=== PATIENT | male | born 1955 | race Caucasian/White ===

== ENCOUNTER 2018-08-15 10:38 | Inpatient (IN) | payer BC, OTHER ==
--- NOTE | 2018-08-15 10:55 | EDPHY ---
H & P Stated Complaint: cheest tightness Time Seen by Provider: 08/15/18 10:51 - Personal History Current Tetanus/Diphtheria Vaccine: Unsure - Medical/Surgical History Hx Asthma: No Hx Chronic Respiratory Disease: No Hx Diabetes: No Hx Cardiac Disease: Yes Hx Renal Disease: No Hx Cirrhosis: No Hx Alcoholism: No Hx HIV/AIDS: No Hx Splenectomy or Spleen Trauma: No Other PMH: mi 8 stents - Social History Smoking Status: Never smoked Constitutional: Initial Vital Signs Temperature (C) 36.6 C 08/15/18 10:45 Heart Rate 71 08/15/18 10:45 Respiratory Rate 16 08/15/18 10:45 Blood Pressure 151/94 H 08/15/18 10:45 O2 Sat (%) 92 08/15/18 10:45 O2 Delivery Mode Room Air Allergies/Adverse Reactions: No Known Allergies Allergy (Unverified 08/15/18 10:44) Home Medications: Medication Instructions Recorded Aspirin 08/15/18 Atenolol 08/15/18 Simvastatin 08/15/18 Medical Decision Making ED Course/Re-evaluation: CHIEF COMPLAINT: Chest pain HISTORY OF PRESENT ILLNESS: The patient is a 63 y/o male with a history of an NY requiring 6 cardiac stents complaining of resolved "light" chest tightness, onset 2 days ago. The patient was hiking up a hill when he developed a general chest tightness. He stopped hiking and the pain alleviated, however when he started hiking again the pain returned. He skied yesterday and didn't have the chest tightness, the level of exertion was less than the hike. He has tried recreating the exertion level and chest tightness, but has been unable to do so. This pain feels different than the chest pain when he had an NY. Due to his cardiac history he decided to present to the emergency department. The patient does take his medications mostly as prescribed including Aspirin and Simvastatin. He does not take Simvastatin every day due to muscle pain. he denies seeing a vehicle safety inspector recently. No fever, headache, body aches, lightheadedness, heart palpitations, shortness of breath, cough, abdominal pain, urinary or bowel complaints, numbness, paresthesias. REVIEW OF SYSTEMS: A 10 point review of systems was performed and is negative with the exception of the elements mentioned in the history of present illness. PHYSICAL EXAM: HR, BP, O2 Sat, RR. Temp noted General Appearance: Alert, well hydrated, appropriate, and non-toxic appearing. Head: Atraumatic without scalp tenderness or obvious injury Eyes: Pupils equal, round, reactive to light and accommodation, EOMI, no trauma , no injection. Ears: Clear bilaterally, no perforation, normal landmarks Nose: Atraumatic, no rhinorrhea, clear. Throat: There is no erythema or exudates, no lesions, normal tonsils, mucus membranes moist. Neck: Supple, 2+ carotid upstroke, nontender, no lymphadenopathy. Respiratory: No retractions, no distress, no wheezes, and no accessory muscle use. Lungs are clear to auscultation bilaterally. Cardiovascular: 1/6 systolic murmur. Regular rate and rhythm, no rubs, or gallops. Bilateral carotid, radial, dorsalis pedis, and posterior tibial pulses intact. Good capillary refill all extremities. Gastrointestinal: Abdomen is soft, nontender, non-distended, no masses, no rebound, no guarding, no peritoneal signs. Musculoskeletal: Normal active ROM of all extremities, atraumatic. Neurological: Alert, appropriate, and interactive. The patient has normal DTRs and non-focal cranial nerves, motor, sensory, and cerebellar exam. Skin: No rashes, good turgor, no nodules on palpation. Past medical history: NY Past surgical history: 6 cardiac stents (1998) Family history: Father had NY in 40's Social history: Lives in [place], , employed DIAGNOSTICS/PROCEDURES/CRITICAL CARE TIME: EKG: The 12 lead EKG was interpreted by myself as sinus rhythm with a rate of 61 and borderline left axis deviation. See hard copy and/or "tracemaster" electronic copy for interpretation. DIFFERENTIAL DIAGNOSIS: The differential diagnosis for the patient's chest pain included but was not limited to myocardial ischemia, pulmonary embolus, chest wall pain, pleural inflammation, and pulmonary infectious causes. MEDICAL DECISION MAKING: The patient is a 63 y/o male with a history of an NY requiring 6 cardiac stents complaining of resolved "light" chest tightness, onset 2 days ago while hiking up a hill. He has been unable to recreate the level of exertion and chest tightness. On exam he has a 1/6 systolic murmur, but an otherwise normal physical exam. I have discussed probably plan for admission and catheterization which the patient is comfortable with. Labs and EKG ordered. 1058: I interpreted patient's EKG as sinus rhythm with a rate of 61 and borderline left axis deviation. 1108: Patient's troponin is 0.02 1111: I consulted with Dr. Montes, vehicle safety inspector, regarding this patient. The foam charger will come to the emergency department to consult on this patient. We will keep the patient NPO. 1124: I consulted with the hospitalist service, Dr. Lauren accepts admission of this patient. 1131: I consulted with Dr. Montes, this patient will be transferred to the floor and then cathed later. 1134: Reassessed patient and discussed my consultations with the vehicle safety inspector and hospitalist. He is comfortable with plan for admission. 1155: I consulted with the vehicle safety inspector NAYELY regarding this patient. The patient will be transported to the laboratory technology teacher from the emergency department. - Data Points Laboratory Results: Laboratory Results 08/15/18 10:55 08/15/18 10:55 08/15/18 08/15/18 10:55 10:55 WBC 5.14 10^3/uL 10^3/uL (3.80-9.50) RBC 5.15 10^6/uL 10^6/uL (4.40-6.38) Hgb 15.3 g/dL g/dL (13.7-17.5) Hct 43.9 % % (40.0-51.0) MCV 85.2 fL fL (81.5-99.8) MCH 29.7 pg pg (27.9-34.1) MCHC 34.9 g/dL g/dL (32.4-36.7) RDW 13.2 % % (11.5-15.2) Plt Count 179 10^3/uL 10^3/uL (150-400) MPV 11.2 fL fL (8.7-11.7) Neut % (Auto) 54.6 % % (39.3-74.2) Lymph % (Auto) 29.4 % % (15.0-45.0) [place] % (Auto) 10.9 % % (4.5-13.0) Eos % (Auto) 4.3 % % (0.6-7.6) Baso % (Auto) 0.6 % % (0.3-1.7) Nucleat RBC Rel Count 0.0 % % (0.0-0.2) Absolute Neuts (auto) 2.81 10^3/uL 10^3/uL (1.70-6.50) Absolute Lymphs (auto) 1.51 10^3/uL 10^3/uL (1.00-3.00) Absolute Monos (auto) 0.56 10^3/uL 10^3/uL (0.30-0.80) Absolute Eos (auto) 0.22 10^3/uL 10^3/uL (0.03-0.40) Absolute Basos (auto) 0.03 10^3/uL 10^3/uL (0.02-0.10) Absolute Nucleated RBC 0.00 10^3/uL 10^3/uL (0-0.01) Immature Gran % 0.2 % % (0.0-1.1) Immature Gran # 0.01 10^3/uL 10^3/uL (0.00-0.10) Sodium 139 mEq/L mEq/L (135-145) Potassium 4.5 mEq/L mEq/L (3.5-5.2) Chloride 108 mEq/L mEq/L (97-110) Carbon Dioxide 24 mEq/l mEq/l (22-31) Anion Gap 7 mEq/L mEq/L (6-14) BUN 27 mg/dL H mg/dL (7-23) Creatinine 1.3 mg/dL mg/dL (0.7-1.3) Estimated GFR 56 Glucose 95 mg/dL mg/dL (70-100) Calcium 9.2 mg/dL mg/dL (8.5-10.4) Departure - Departure Disposition: To OP Cath/Surgery Clinical Impression: Chest pain Qualifiers: Chest pain type: chest pain due to myocardial ischemia Ischemic chest pain type : stable angina pectoris Qualified Code(s): I20.8 - Other forms of angina pectoris CAD (coronary artery disease) Qualifiers: Coronary Disease-Associated Artery/Lesion type: alutiiq artery [place] vs. transplanted heart: alutiiq heart Associated angina: with stable angina Qualified Code(s): I25.118 - Atherosclerotic heart disease of alutiiq coronary artery with other forms of angina pectoris Condition: Fair Referrals: Patient,NotPresent [Unknown] - As per Instructions Report Scribed for: Braeden Cotto Report Scribed by: Nica Brambila Date of Report: 08/15/18 Time of Report: 10:57
[2018-08-15 11:08] LABS: PLATELET COUNT 179 10^3/uL (150-400)
[2018-08-15] MEDS ORDERED: TEMAZEPAM 15 MG CAP PO PRN (12:07)
[2018-08-15] MEDS ORDERED: FAMOTIDINE 20 MG TAB PO ONE (12:07)
[2018-08-15] MEDS ORDERED: ASPIRIN EC 325 MG TAB PO ONE (12:07)
[2018-08-15] MEDS ORDERED: NITROGLYCERIN 0.4 MG BTL SL PRN ×2 (12:07→14:36)
[2018-08-15] MEDS ORDERED: DIAZEPAM 5 MG TAB PO ONE (12:07)
[2018-08-15] MEDS ORDERED: diphenhydrAMINE 25 MG CAP PO ONE (12:07)
[2018-08-15 12:27] LABS: INR 0.92 (0.83-1.16)
--- NOTE | 2018-08-15 12:49 | PDGENHP ---
History and Physical History and Physical: CC: Exertional angina HISTORY: ROS: A comprehensive 10 system review revealed no other significant findings PAST MEDICAL HISTORY: Myocardial infarction Coronary artery disease with 6 stents placed Hypercholesterolemia Myalgias induced by statin medicines FAMILY MEDICAL HISTORY: His father had myocardial infarction in his 40s SOCIAL HISTORY: MEDICATIONS: The patients list has been reconciled by our clinical pharmacist in the EMR. I have reviewed the list and ordered appropriate medicines. PHYSICAL EXAMINATION: Vital Signs: Double Backer: Examination: General: alert, oriented, good mentation, relaxed Skin: warm, dry, good color, no rash HEENT: normal Neck: no mass or jvd Resps: relaxed Lungs: clear breath sounds Heart: regular, no murmur Abdomen: soft, nondistended, nontender, +BS, no mass Upper Extremities: normal Lower Extremities: no edema, warm No Bleeding or bruising Neurologic: normal speech/language, normal analyst geochemical prospecting, no focal weakness IV site: looks normal LABORATORY DATA: Unremarkable CBC and coagulation studies BUN a bit elevated at 27, with creatinine 1.3 otherwise unremarkable chemistry panel Troponin undetectable LDL cholesterol 120s RADIOLOGY STUDIES: 12 LEAD EKG: ASSESSMENT: * Exertional angina, new onset so unstable in a man with previous stents and myocardial infarction * Uncontrolled hypertension * Uncontrolled hypercholesterolemia, with inconsistent use of statin medication * Initial ER assessment without signs of myocardial injury or arrhythmia PLANS: I have reviewed the patient's case in detail with . I have reviewed the patient's past medical records as part of this assessment, including
[2018-08-15] MEDS ORDERED: fentaNYL 100 MCG/2 ML INJ ONE (13:18)
[2018-08-15] MEDS ORDERED: LIDOCAINE 1% 300 MG/30 ML SDV ONE (13:18)
[2018-08-15] MEDS ORDERED: IOPAMIDOL (ISOVUE-370) 150 ML BTL IV ONE (13:19)
[2018-08-15] MEDS ORDERED: MIDAZOLAM 2 MG/2 ML VIAL ONE (13:19)
--- NOTE | 2018-08-15 13:50 | PDHPUP ---
History & Physical Update H&P update statement: This history and physical update is based on an assessment of the patient which was completed after admission or registration (within 24 hours), but prior to the surgery/procedure. H&P update: H&P reviewed & patient examined, no change in patient's condition since H&P completed
--- NOTE | 2018-08-15 13:51 | PDPROPOC ---
Sedation Plan of Care Sedation Plan of Care: mental status noted, patient educated of risks, benefits , alternatives, patient can tolerate sedation ASA Classification: ASA 2 Planned drugs: fentanyl, midazolam Mallampati Score: Class 2 Mallampati Reference Image: Patient passed 3-3-2 rule?: Yes
[2018-08-15] MEDS ORDERED: PRASUGREL HCL 10 MG TAB ONE (13:54)
--- NOTE | 2018-08-15 14:28 | GCON ---
[f rep ] CONSULTATION CARDIOLOGY CONSULTATION DATE OF CONSULTATION: 08/15/2018 REFERRING PHYSICIAN: Braeden Cotto MD REASON FOR CONSULTATION: We were asked by Dr. Cotto to evaluate the patient for his new onset of chest pain. HISTORY OF PRESENT ILLNESS: The patient is a 63-year-old male with a previous history of CAD starting with PTCA and stenting starting in 1998. At that time, he was living in [place]. He had chest pain in the night. He went to the hospital the next day and had a failed stress test. He proceeded to left heart catheterization and had PTCA and stenting of unknown vessel. He reports he was told he had moderate disease affecting other vessels, which were not intervened upon at that time. A couple of months later, he had further episodes of pain and proceeded to more stenting. In 2008, he was having chest pain walking up a hill, and again, this was reminiscent of his initial angina. He proceeded to left heart catheterization, and had further PTCA and stenting. He reports all this was done with Dr. Vaqsuez. Over the weekend, he had skied and noted a light chest tightness. This was exertional and relieved with stopping. That afternoon, he took his dog walking and had similar symptoms. He stopped walking and symptoms would annamarie. He had no associated dyspnea, diaphoresis, or nausea. This was across his sternal region without radiation. He has not been noting fever, chills, nausea, vomiting, cough, hemoptysis, lower extremity swelling, PND, or orthopnea. OUTPATIENT MEDICATIONS: Please see medication reconciliation. He reports they are Crestor, which he only takes intermittently due to myalgias; omeprazole 20 mg p.o. daily; folic acid; ramipril 2.5 mg p.o. daily; Effient 10 mg p.o. daily ; aspirin 81 mg p.o. daily; atenolol 25 mg p.o. daily. ALLERGIES: No known drug allergies. FAMILY HISTORY: Father had an AR at age 41. He lived until his 80s. PAST MEDICAL HISTORY: As above. SOCIAL HISTORY: Patient lives in [place]. He is . He is an ex-smoker, having quit 20 years ago. He does use a marijuana products. He reports 2 alcoholic beverages per week. PHYSICAL EXAMINATION: VITAL SIGNS: BP of 156/93, heart rate 63, respirations 18, O2 saturation 93% on room air. GENERAL: He is a very pleasant male in no apparent distress. HEENT: Normocephalic, atraumatic. Eyes are without scleral icterus. HEART: Regular rate and rhythm with no rubs, gallops, or murmurs. LUNGS: Clear to auscultation. ABDOMEN: Soft with normoactive bowel sounds. : No [place] present. SKIN: Warm and dry. PSYCH: Normal mood and affect for given situation. NEURO: No focal deficits detected. LABORATORY/IMAGING: CBC with WBC 5.14, hemoglobin 15.3, hematocrit 43.9, platelet count 179. BMP with sodium 139, potassium 4.5, chloride 108, CO2 24, BUN 27, creatinine 1.3, glucose 95. A 12-lead ECG personally interpreted shows normal sinus rhythm with LAFB. I have spoken with Dr. Cotto in the ED about patient's care. IMPRESSION AND PLAN: The patient is a 63-year-old male with hypertension, dyslipidemia, and coronary artery disease. He presents with new onset unstable angina. 1. Unstable angina. He feels symptoms are currently reminiscent of previous angina. We reviewed options and patient is agreeable to left heart catheterization for further evaluation. Risks, benefits, and alternatives were reviewed with him. 2. Dyslipidemia. He reports only intermittent usage of his Crestor. He feels that he gets myalgias from this. We will check a baseline lipid panel discuss other pharmacologic options. 3. Hypertension. Blood pressure is quite elevated in the emergency setting. We will follow blood pressure and consider up-titrating medications as indicated. /[id number]/MODL MTDD
[2018-08-15] MEDS ORDERED: ONDANSETRON 4 MG/2 ML VIAL IVP PRN (14:36)
[2018-08-15] MEDS ORDERED: OXYCODONE/APAP 5/325 TAB PO PRN (14:36)
[2018-08-15] MEDS ORDERED: ATROPINE SULFATE 1 MG/10 ML SYR IVP PRN (14:36)
--- NOTE | 2018-08-15 14:46 | CPEKG ---
Test Reason : OPEN Blood Pressure : / mmHG Vent. Rate : 061 BPM Atrial Rate : 061 BPM P-R Int : 146 ms QRS Dur : 093 ms QT Int : 415 ms P-R-T Axes : 047 -27 012 degrees QTc Int : 418 ms Sinus rhythm Borderline left axis deviation Confirmed by Braeden Cotto ([id number]) on 08/15/2018 2:46:20 PM Referred By: PHYSICIAN ED Confirmed By:Braeden Cotto
--- NOTE | 2018-08-15 16:04 | CPIP ---
[f rep st] INVASIVE CARDIAC PROCEDURE DATE OF PROCEDURE: 08/15/2018 INDICATION FOR PROCEDURE: Unstable angina. PROCEDURES: 1. Nonselective right groin sheathogram. 2. Bilateral coronary angiography. 3. Left heart catheterization. 4. Left angiogram. HISTORY: Briefly, this is a 63-year-old male with history of multiple coronary stents in the past, carlyn guajardo was admitted to [facility] with complaints of unstable-like anginal symptoms. Given the patient's significant history of multiple coronary stents, as well as his classic history of ang inal pain, we decided to proceed with a left heart catheterization. DESCRIPTION OF PROCEDURE: After informed consent, the patient was brought to [facility] where the right groin was prepped and draped in sterile fashion. Using lidocaine, a short 6-[place] sheath in the right common femoral artery verified angiographically. Through this 6-[place] sheath, a JL4 catheter was advanced to the left coronary artery. Images of the left coronary artery revealed normal left main. Left circumflex artery had what appear ed to be proximal dilatation bifurcating to 2 marginal arteries. At the bifurcation of the marginal arteries, there was at least 30% to 40% disease in both proximal marginal arteries. In the marginal 1 artery, there appeared to be another area of at least 50% to 60% disease after its proximal takeoff. There was a ramus intermedius which had 30% narrowing across the bend in the vesse l, but distally appeared to be widely patent. The LAD was extensively stented from its proximal to m idportion. These stents showed extensive in-stent restenosis up to approximately 80% to 90%. Distal ly, the vessel appeared to be widely patent. After imaging was obtained, the JL4 catheter was remove d. The JR4 catheter was advanced to the right coronary artery. Images of the right coronary artery reve aled normal ostial RCA. In the proximal RCA, there was a stent which had extensive in-stent restenosis measuring up to 90%. The mid RCA appeared to be patent with mild plaque disease. The distal RCA just before the bifurcation of the RPD and RPLS had a focal 80% lesion. The distal RPD and RPLS appeared to be w idely patent. After these images were obtained, the JR4 catheter was removed. Pigtail catheter was advanced to the left ventricle. LVEDP is 15 mmHg. Left ventriculogram in the R AO projection showed an EF of 65% with no wall motion abnormalities. There was no pullback gradient between the LV and the aorta. The pigtail catheter was removed over an 0.035 wire. Right groin was closed with 6-[place] Angio-Seal. Patient tolerated the procedure well with no complications. IMPRESSION: 1. Severe double-vessel in-stent restenosis in the left anterior descending and proximal right coron anabela artery with an additional high-grade lesion in the distal right coronary artery, as well as moder ate disease in the proximal OM1 artery. 2. Normal ejection fraction. PLAN: Given the fact the patient shows significant in-stent restenosis in 2 major arteries, as well as has a history of multiple stents placed in the past, I feel that we should proceed with a CT Surge ry consult for definitive therapy for his coronary artery disease. We will take him off the table. We will hold his Effient at this time, have Dr. Recinos from CT Surgery evaluate the patient. Further orders following clinical course. /[id number]/MODL
[2018-08-15] MEDS: ACETAMINOPHEN 325 MG TAB PO PRN (18:51)
[2018-08-15] MEDS: FOLIC ACID 1 MG TAB PO SCH (20:30)
[2018-08-15] MEDS: ATENOLOL 25 MG TAB PO SCH (20:30)
[2018-08-15] MEDS: RAMIPRIL 2.5 MG CAP PO SCH (20:30)
[2018-08-15] MEDS: ROSUVASTATIN CALCIUM 10 MG TAB PO SCH (20:40)
[2018-08-15] MEDS: PANTOPRAZOLE SODIUM 40 MG TAB PO SCH (20:41)
[2018-08-15] MEDS: HYDROCODONE/APAP 5/325 TAB PO PRN (20:47)
--- NOTE | 2018-08-16 07:22 | PDCARPN ---
Cardiology Progress Note Chief Complaint: CP Assessment/Plan: Assessment: CP CAD Plan: 08/16/18 07:21 pt has severe ISR in multiple vessels Plan for CABG per CTS continue current tx, hold effient Subjective: stable Reviewed/Discussed With: multidisciplinary team Time Spent with Patient: greater than 25 minutes Time Spent with Patient: Greater than 25 minutes spent on this patients care, greater than 50% of time spent counseling, educating, and coordinating care regarding the above mentioned plan. Objective: Vital Signs (8 Hrs) Temp Pulse Resp BP Pulse Ox 08/16/18 04:00 36.5 C 56 L 16 121/67 H 94 08/15/18 23:33 36.5 C 51 L 16 121/70 H 96 Intake/Output (24 Hrs) 08/15/18 08/16/18 08/17/18 05:59 05:59 05:59 Intake Total 700 Output Total 650 Balance 50 Intake: Oral (ml) 700 Output: Urine (ml) 650 Urinal 650 Other: Weight 81.647 kg Number of Voids Urinal 2 Result Diagrams: 08/15/18 10:55 08/15/18 10:55 - Physical Exam Constitutional: healthy appearing Eyes: PERRL Ears, Nose, Mouth, Throat: moist mucous membranes Cardiovascular: regular rate and rhythm Peripheral Pulses: 1+: femoral (R), femoral (L) Respiratory: clear to auscultate bilat Gastrointestinal: normoactive bowel sounds Genitourinary: no suprapubic tenderness Skin: no rashes Musculoskeletal: no muscular tenderness Neurologic: AAOx3 Psychiatric: cooperative ICD10 Worksheet Patient Problems: Problems Problem Status Onset CAD (coronary artery disease) Acute Chest pain Acute
[2018-08-16] MEDS: ACETAMINOPHEN 325 MG TAB PO PRN (10:14)
--- NOTE | 2018-08-16 14:59 | ASMTCMCOM ---
CM Note CM Note Notes: Pts case discussed in tx rounds. Pt is a 63 y/o man admitted for CAD. Pt will most likely d/c independent when medically stable. No therapies ordered at this time. CM available for changes. Plan: Independent Date Signed: 08/16/2018 02:58 PM Electronically Signed By:ANNALISA Faith
[2018-08-16] MEDS: HYDROCODONE/APAP 5/325 TAB PO PRN (20:54)
[2018-08-16] MEDS: RAMIPRIL 2.5 MG CAP PO SCH (20:54)
[2018-08-16] MEDS: ATENOLOL 25 MG TAB PO SCH (20:55)
[2018-08-16] MEDS: FOLIC ACID 1 MG TAB PO SCH (20:55)
[2018-08-16] MEDS: PANTOPRAZOLE SODIUM 40 MG TAB PO SCH (20:58)
[2018-08-16] MEDS: ROSUVASTATIN CALCIUM 10 MG TAB PO SCH (20:58)
--- NOTE | 2018-08-16 21:21 | PDMN ---
Medical Necessity Medical necessity: Change to inpt as of 08/16/18 @ 16:30, pt meets inpt criteria per MD order and MCG M-40, Angina. 63 y/o w/hx CAD/stent, HTN, and dyslipidemia , admitted w/USA, underwent LHC and was found to have severe in-stent restenosis in mult vessels (LAD and prox RCA with add'l high-grade lesion in distal RCA, as well as mod disease in prox OM 1). Upgraded to inpt for CT surg consult and likely CABG this admission.
[2018-08-17 05:07] LABS: PLATELET COUNT 179 10^3/uL (150-400)
--- NOTE | 2018-08-17 07:39 | PDCARPN ---
Cardiology Progress Note Chief Complaint: CP Assessment/Plan: Assessment: CP CAD Plan: 08/16/18 07:21 pt has severe ISR in multiple vessels Plan for CABG per CTS continue current tx, hold effient 08/17/18 07:38 stable no CP Plan for CABG on 08/18 plan per CTS Subjective: stable Reviewed/Discussed With: multidisciplinary team Time Spent with Patient: greater than 25 minutes Time Spent with Patient: Greater than 25 minutes spent on this patients care, greater than 50% of time spent counseling, educating, and coordinating care regarding the above mentioned plan. Objective: Vital Signs (8 Hrs) Temp Pulse Resp BP Pulse Ox 08/17/18 04:00 36.6 C 57 L 12 139/83 H 93 Intake/Output (24 Hrs) 08/16/18 08/17/18 08/18/18 05:59 05:59 05:59 Intake Total 500 Balance 500 Intake: Oral (ml) 500 Other: Number of Voids Toilet 2 Result Diagrams: 08/17/18 04:12 08/17/18 04:12 - Physical Exam Constitutional: no apparent distress Eyes: PERRL Ears, Nose, Mouth, Throat: moist mucous membranes Cardiovascular: regular rate and rhythm Peripheral Pulses: 1+: femoral (R), femoral (L) Respiratory: clear to auscultate bilat Gastrointestinal: normoactive bowel sounds Genitourinary: no suprapubic tenderness Skin: no rashes Musculoskeletal: no muscular tenderness Neurologic: AAOx3 Psychiatric: cooperative ICD10 Worksheet Patient Problems: Problems Problem Status Onset CAD (coronary artery disease) Acute Chest pain Acute
--- NOTE | 2018-08-17 11:38 | PDGENHP ---
History and Physical - Chief Complaint CAD - History of Present Illness 63M with known CAD s/p stenting with c/o recent CP on exertion while walking uphill s/p LHC by Dr. Melara and found to have severe in-stent restenosis of LAD and proximal RCA as well as a high grade distal RCA lesion. CTSx consulted for surgical revascularization. The pt is currently comfortable w/o complaints. He denies weakness, light-headedness, nausea, CP, chest palpitations, SOB, orthopnea, or LE edema. The pt has a h/o HTN and DLD. He denies h/o CVA, renal issues or DM. He was taking Effient as an OP and his last dose was 08/14. History Information - Allergies/Home Medication List Allergies/Adverse Reactions: No Known Allergies Allergy (Verified 08/15/18 13:44) Home Medications: Aspirin [Aspirin 81mg (*)] 81 mg PO HS 08/15/18 [Last Taken 08/14/18] Atenolol [Tenormin 25 mg (*)] 25 mg PO HS 08/15/18 [Last Taken 08/14/18] Folic Acid [Folic Acid 1 MG (*)] 1 mg PO HS 08/15/18 [Last Taken 08/14/18] Naproxen Sodium [Aleve 220 MG (*)] 220 mg PO BID PRN 08/15/18 [Last Taken Unknown] Omeprazole 20 mg PO HS 08/15/18 [Last Taken 08/14/18] Prasugrel HCl [Effient 5mg (*)] 5 mg PO HS 08/15/18 [Last Taken 08/14/18] Ramipril [Altace 2.5mg (*)] 2.5 mg PO HS 08/15/18 [Last Taken 08/14/18] Rosuvastatin Calcium [Crestor 10mg (RX)] 10 mg PO HS 08/15/18 [Last Taken ] I have personally reviewed and updated: medical history, social history, surgical history - Past Medical History coronary artery disease, hypertension, hyperlipidemia - Surgical History Reports: coronary stent - Social History Smoking Status: Never smoked Review of Systems Review of Systems: ROS: 10pt was reviewed & negative except for what was stated in HPI & below Physical Exam Physical Exam: Temp Pulse Resp BP Pulse Ox 36.4 C 61 16 129/84 H 93 08/17/18 07:52 08/17/18 07:52 08/17/18 07:52 08/17/18 07:52 08/17/18 07:52 Constitutional: no apparent distress, appears nourished, not in pain Eyes: anicteric sclera Ears, Nose, Mouth, Throat: hearing normal, ears appear normal, no oral mucosal ulcers Cardiovascular: regular rate and rhythym, no murmur, rub, or gallop Respiratory: no respiratory distress, no rales or rhonchi, clear to auscultation Gastrointestinal: soft, non-tender abdomen Skin: warm, normal color Musculoskeletal: full muscle strength Neurologic: AAOx3 Psychiatric: interacting appropriately, not anxious, not encephalopathic, thought process linear Lab Data & Imaging Review 08/17/18 04:12 08/17/18 04:12 WBC 7.07 10^3/uL (3.80-9.50) 08/17/18 04:12 RBC 5.30 10^6/uL (4.40-6.38) 08/17/18 04:12 Hgb 15.5 g/dL (13.7-17.5) 08/17/18 04:12 Hct 46.1 % (40.0-51.0) 08/17/18 04:12 MCV 87.0 fL (81.5-99.8) 08/17/18 04:12 MCH 29.2 pg (27.9-34.1) 08/17/18 04:12 MCHC 33.6 g/dL (32.4-36.7) 08/17/18 04:12 RDW 13.1 % (11.5-15.2) 08/17/18 04:12 Plt Count 179 10^3/uL (150-400) 08/17/18 04:12 MPV 11.3 fL (8.7-11.7) 08/17/18 04:12 Neut % (Auto) 55.7 % (39.3-74.2) 08/17/18 04:12 Lymph % (Auto) 29.0 % (15.0-45.0) 08/17/18 04:12 [place] % (Auto) 9.8 % (4.5-13.0) 08/17/18 04:12 Eos % (Auto) 4.8 % (0.6-7.6) 08/17/18 04:12 Baso % (Auto) 0.6 % (0.3-1.7) 08/17/18 04:12 Nucleat RBC Rel Count 0.0 % (0.0-0.2) 08/17/18 04:12 Absolute Neuts (auto) 3.94 10^3/uL (1.70-6.50) 08/17/18 04:12 Absolute Lymphs (auto) 2.05 10^3/uL (1.00-3.00) 08/17/18 04:12 Absolute Monos (auto) 0.69 10^3/uL (0.30-0.80) 08/17/18 04:12 Absolute Eos (auto) 0.34 10^3/uL (0.03-0.40) 08/17/18 04:12 Absolute Basos (auto) 0.04 10^3/uL (0.02-0.10) 08/17/18 04:12 Absolute Nucleated RBC 0.00 10^3/uL (0-0.01) 08/17/18 04:12 Immature Gran % 0.1 % (0.0-1.1) 08/17/18 04:12 Immature Gran # 0.01 10^3/uL (0.00-0.10) 08/17/18 04:12 PT 12.0 SEC (12.0-15.0) 08/15/18 10:55 INR 0.92 (0.83-1.16) 08/15/18 10:55 APTT 29.2 SEC (23.0-38.0) 08/15/18 10:55 Sodium 138 mEq/L (135-145) 08/17/18 04:12 Potassium 4.4 mEq/L (3.5-5.2) 08/17/18 04:12 Chloride 106 mEq/L (97-110) 08/17/18 04:12 Carbon Dioxide 23 mEq/l (22-31) 08/17/18 04:12 Anion Gap 9 mEq/L (6-14) 08/17/18 04:12 BUN 28 mg/dL (7-23) H 08/17/18 04:12 Creatinine 1.0 mg/dL (0.7-1.3) 08/17/18 04:12 Estimated GFR > 60 08/17/18 04:12 Glucose 95 mg/dL (70-100) 08/17/18 04:12 Calcium 8.8 mg/dL (8.5-10.4) 08/17/18 04:12 Magnesium 2.1 mg/dL (1.6-2.3) 08/15/18 10:55 POC Troponin I 0.02 ng/mL (0.00-0.08) 08/15/18 10:57 Troponin I < 0.012 ng/mL (0.000-0.034) 08/15/18 10:55 Triglycerides 295 mg/dL (40-150) H 08/15/18 10:55 Cholesterol 225 mg/dL (140-220) H 08/15/18 10:55 Cholesterol Risk Factr 1.2 (0.2-1.0) H 08/15/18 10:55 LDL Cholesterol, Calc 123 mg/dL (80-100) H 08/15/18 10:55 LDL Risk Factor 1.0 (0.2-1.0) 08/15/18 10:55 VLDL Cholesterol 59 mg/dL (8-25) H 08/15/18 10:55 Non-HDL Cholesterol 182 mg/dL (90-129) H 08/15/18 10:55 HDL Cholesterol 43 mg/dL (40-65) 08/15/18 10:55 LDL/HDL Ratio 2.86 RATIO (1.00-3.64) 08/15/18 10:55 Cholesterol/HDL Ratio 5.23 RATIO (1.00-4.97) H 08/15/18 10:55 Visualized and Interpreted Chest x-ray results: Yes Chest X-Ray results: no infiltrate Visualized and Interpreted EKG results: Yes EKG Interpretation: Positive for: normal sinsus rhythm Assessment & Plan Assessment: 63M with exertional angina and severe CAD - Plan for CABG 08/[address] Recinos at 7:15AM
--- NOTE | 2018-08-17 12:26 | ASMTCMCOM ---
CM Note CM Note Notes: 08/17/2018 Case Management Note Pt scheduled for CABG 08/18 at 7:15 AM Case Management d/c poc: to be determined. Case Management to follow. Date Signed: 08/17/2018 12:25 PM Electronically Signed By:Amena Hartman RN
[2018-08-17] MEDS: RAMIPRIL 2.5 MG CAP PO SCH (20:53)
[2018-08-17] MEDS: FOLIC ACID 1 MG TAB PO SCH (20:53)
[2018-08-17] MEDS: PANTOPRAZOLE SODIUM 40 MG TAB PO SCH (20:54)
[2018-08-17] MEDS: ATENOLOL 25 MG TAB PO SCH (20:54)
[2018-08-17] MEDS: ROSUVASTATIN CALCIUM 10 MG TAB PO SCH (20:56)
[2018-08-17] MEDS ORDERED: CHLORHEXIDINE GLUC HIBICLENS 118 ML BTL TP SCH (21:00)
[2018-08-18] MEDS ORDERED: ceFAZolin 2 GM/DEXTROSE 100 ML IV ONE (06:00)
[2018-08-18] MEDS ORDERED: AMINOCAPROIC ACID 5 GM/20 ML VIAL IV ONE (06:00)
[2018-08-18] MEDS ORDERED: PHENYLEPHRINE HCL 50 MG in NS 250 ML IV ONE (06:00)
[2018-08-18] MEDS ORDERED: PAPAVERINE HCL 60 MG in NS 100 ML IV ONE (06:00)
[2018-08-18] MEDS ORDERED: NOREPINEPHRINE BITARTRATE 16 MG in NS 250 ML IV ONE (06:00)
[2018-08-18] MEDS ORDERED: niCARdipine/NACL 200 ML IV ONE (06:00)
[2018-08-18] MEDS ORDERED: CITRATE DEXTROSE SOLN 500 ML BAG MISC ONE (06:00)
[2018-08-18] MEDS ORDERED: INSULIN REGULAR HUMAN 100 UNIT in NS 100 ML IV ONE (06:00)
[2018-08-18] MEDS ORDERED: MANNITOL 25% 12.5 GM/50 ML VIAL IVP ONE (06:00)
[2018-08-18] MEDS ORDERED: VERAPAMIL 5 MG, NITROGLYCERIN 2.5 MG, HEPARIN 500 UNIT, SODIUM BICARBONATE 0.2 MEQ in L... MISC ONE (06:00)
[2018-08-18] MEDS ORDERED: CARDIOPLEGIC SOLUTION 1,052.8 ML PF ONE (06:00)
[2018-08-18] MEDS ORDERED: MUPIROCIN 2% 22 GM OINT NS ONE (06:00)
[2018-08-18] MEDS ORDERED: CALCIUM CHLORIDE 1 GM/10 ML INJ ONE ×4 (06:38→06:41)
[2018-08-18] MEDS ORDERED: MILRINONE/DEXTROSE/100 ML BAG IV ONE (06:38)
[2018-08-18] MEDS ORDERED: PROTAMINE SULFATE 50 MG/5 ML VIAL IVP ONE (06:38)
[2018-08-18] MEDS ORDERED: AMIODARONE HCL 150 MG/3 ML VIAL ONE ×2 (06:39→06:41)
[2018-08-18] MEDS ORDERED: ADENOSINE 6 MG/2 ML VIAL ONE (06:39)
[2018-08-18] MEDS ORDERED: HEPARIN 10,000 UNIT/10 ML MDV (1,000 UNIT/ML) ONE ×5 (06:39→07:16)
[2018-08-18] MEDS ORDERED: NA BICARBONATE 50 MEQ/50 ML VIAL ONE (06:39)
[2018-08-18] MEDS ORDERED: AMINOCAPROIC ACID 5 GM/20 ML VIAL ONE ×2 (06:39→06:41)
[2018-08-18] MEDS ORDERED: niCARdipine/NACL/200 ML BAG IV ONE (06:39)
[2018-08-18] MEDS ORDERED: DOPamine/DEXTROSE 400 MG/250 ML BAG IV ONE (06:39)
[2018-08-18] MEDS ORDERED: SODIUM BICARBONATE 50 MEQ/50 ML SYR ONE (06:40)
[2018-08-18] MEDS ORDERED: ceFAZolin 1 GM VIAL ONE (06:40)
[2018-08-18] MEDS ORDERED: NITROGLYCERIN/D5W 50 MG/250 ML BOTTLE IV ONE (06:40)
[2018-08-18] MEDS ORDERED: CITRATE DEXTROSE SOLN 500 ML BAG ONE (06:41)
[2018-08-18] MEDS ORDERED: ALBUMIN 5% 250 ML BOTTLE IV ONE ×4 (06:41→13:24)
[2018-08-18] MEDS ORDERED: LIDOCAINE 2% 100 MG/5 ML SYR ONE (06:41)
[2018-08-18] MEDS ORDERED: MAGNESIUM SULFATE 1 GM/2 ML VIAL ONE (06:41)
[2018-08-18] MEDS ORDERED: methylPREDNISolone SOD SUCC 1 GM/8 ML VIAL ONE (06:41)
--- NOTE | 2018-08-18 06:42 | PDANEPAE ---
ANE History of Present Illness CAD ANE Past Medical History - Cardiovascular History Hx Hypertension: Yes Hx Arrhythmias: No Hx Chest Pain: Yes Hx Coronary Artery / Peripheral Vascular Disease: Yes Hx CHF / Valvular Disease: No Hx Palpitations: No - Pulmonary History Hx COPD: No Hx Asthma/Reactive Airway Disease: No Hx Recent Upper Respiratory Infection: No Hx Oxygen in Use at Home: No Hx Sleep Apnea: No Sleep Apnea Screening Result - Last Documented: Negative - Endocrine History Hx Diabetes: No Hypothyroid: No Hyperthyroid: No Obesity: no - GI History GERD: mild Hx Gastrointestinal Disorders: Yes - Other Health History Other Health History: HL - Chronic Pain History Chronic Pain: No - Surgical History Prior Surgeries: cyst removed from leg. heart stents ANE Review of Systems Review of systems is: negative Review of Systems: ANE Patient History - Allergies Allergies/Adverse Reactions: No Known Allergies Allergy (Verified 08/15/18 13:44) - Home Medications Home medications: home medication list seen and reviewed Home Medications: Aspirin [Aspirin 81mg (*)] 81 mg PO HS 08/15/18 [Last Taken 08/14/18] Atenolol [Tenormin 25 mg (*)] 25 mg PO HS 08/15/18 [Last Taken 08/14/18] Folic Acid [Folic Acid 1 MG (*)] 1 mg PO HS 08/15/18 [Last Taken 08/14/18] Naproxen Sodium [Aleve 220 MG (*)] 220 mg PO BID PRN 08/15/18 [Last Taken Unknown] Omeprazole 20 mg PO HS 08/15/18 [Last Taken 08/14/18] Prasugrel HCl [Effient 5mg (*)] 5 mg PO HS 08/15/18 [Last Taken 08/14/18] Ramipril [Altace 2.5mg (*)] 2.5 mg PO HS 08/15/18 [Last Taken 08/14/18] Rosuvastatin Calcium [Crestor 10mg (RX)] 10 mg PO HS 08/15/18 [Last Taken ] - NPO status NPO Status: no food or drink >8 hours NPO Since - Liquids (Date): 08/18/18 NPO Since - Liquids (Time): 00:00 NPO Since - Solids (Date): 08/18/18 NPO Since - Solids (Time): 00:00 - Anes Hx Anes Hx: no prior problems - Smoking Hx Smoking Status: Never smoked Marijuana use: No - Alcohol Use Alcohol Use: None - Family Anes Hx Family Anes Hx: none ANE Labs/Vital Signs - Labs Result Diagrams: 08/17/18 04:12 08/17/18 04:12 - Vital Signs Blood Pressure: 141/94 Heart Rate: 65 Respiratory Rate: 16 O2 Sat (%): 94 Height: 180.34 cm Weight: 93.5 kg ANE Physical Exam - Airway Neck exam: FROM Mallampati Score: Class 2 Mouth exam: normal dental/mouth exam - Pulmonary Pulmonary: no respiratory distress, clear to auscultation - Cardiovascular Cardiovascular: regular rate and rhythym, no murmur, rub, or gallop - ASA Status ASA Status: IV ANE Anesthesia Plan Anesthesia Plan: general endotracheal anesthesia Lines/Monitors: arterial line, central line
--- NOTE | 2018-08-18 06:46 | PDCARPN ---
Cardiology Progress Note Chief Complaint: CP Assessment/Plan: Assessment: CP CAD Plan: 08/16/18 07:21 pt has severe ISR in multiple vessels Plan for CABG per CTS continue current tx, hold effient 08/17/18 07:38 stable no CP Plan for CABG on 08/18 plan per CTS 08/18/18 06:45 stable plan for CABG today will follow prn Subjective: stable Reviewed/Discussed With: multidisciplinary team Time Spent with Patient: greater than 25 minutes Time Spent with Patient: Greater than 25 minutes spent on this patients care, greater than 50% of time spent counseling, educating, and coordinating care regarding the above mentioned plan. Objective: Vital Signs (8 Hrs) Temp Pulse Resp BP Pulse Ox 08/18/18 06:42 65 16 141/94 H 94 08/18/18 04:00 36.3 C 65 16 141/94 H 94 08/18/18 00:00 36.7 C 75 14 135/87 H 95 Intake/Output (24 Hrs) 08/17/18 08/18/18 08/19/18 05:59 05:59 05:59 Intake Total 500 500 Balance 500 500 Intake: Oral (ml) 500 500 Other: Weight 93.5 kg 93.5 kg Number of Voids Toilet 2 2 Result Diagrams: 08/17/18 04:12 08/17/18 04:12 - Physical Exam Constitutional: no apparent distress Eyes: PERRL Ears, Nose, Mouth, Throat: moist mucous membranes Cardiovascular: regular rate and rhythm Peripheral Pulses: 1+: femoral (R), femoral (L) Respiratory: clear to auscultate bilat Gastrointestinal: normoactive bowel sounds Genitourinary: no suprapubic tenderness Skin: no rashes Musculoskeletal: no muscular tenderness Neurologic: AAOx3 Psychiatric: cooperative ICD10 Worksheet Patient Problems: Problems Problem Status Onset CAD (coronary artery disease) Acute Chest pain Acute
--- NOTE | 2018-08-18 06:46 | PDHPUP ---
History & Physical Update H&P update statement: This history and physical update is based on an assessment of the patient which was completed after admission or registration (within 24 hours), but prior to the surgery/procedure. H&P update: no change in patient's condition since H&P completed
[2018-08-18] MEDS ORDERED: MIDAZOLAM 2 MG/2 ML VIAL IVP ONE (06:48)
[2018-08-18] MEDS ORDERED: fentaNYL 250 MCG/5 ML INJ ONE (06:50)
[2018-08-18] MEDS ORDERED: PROPOFOL/EMULSION 500 MG/50 ML BOTTLE IV ONE (06:50)
[2018-08-18] MEDS ORDERED: ROCURONIUM 100 MG/10 ML VIAL ONE (06:52)
[2018-08-18] MEDS ORDERED: LR 1,000 ML IV ONE (06:53)
[2018-08-18] MEDS ORDERED: PAPAVERINE HCL 60 MG/2 ML SDV ONE (07:04)
[2018-08-18] MEDS ORDERED: VERAPAMIL 5 MG/2 ML VIAL ONE (07:04)
[2018-08-18] MEDS ORDERED: LIDOCAINE 2% 5 ML SDV ONE (07:15)
[2018-08-18] MEDS ORDERED: DEXMEDETOMIDINE HCL 400 MCG in NS 100 ML IV ONE (09:30)
--- NOTE | 2018-08-18 10:02 | POSTANESTH ---
Post Anesthetic Evaluation Cardiovascular Status: Normal, Stable Respiratory Status: Normal, Stable Level of Consciousness/Mental Status: Can Participate in Eval Pain Control: Adequate, Prn Tx Ordered Nausea/Vomiting Control: Adequate, Prn Tx Ordered Complications Possibly Related to Anesthesia: None Noted
[2018-08-18] MEDS ORDERED: MINERAL OIL 10 ML VIAL ONE (10:08)
[2018-08-18] MEDS ORDERED: ONDANSETRON 4 MG/2 ML VIAL ONE (10:48)
[2018-08-18] MEDS ORDERED: NALOXONE HCL 0.4 MG/ML INJ IVP PRN ×3 (10:57→20:09)
[2018-08-18] MEDS ORDERED: GLYCOPYRROLATE 0.2 MG/1 ML VIAL ONE ×2 (11:11)
[2018-08-18] MEDS ORDERED: NEOSTIGMINE METHYLSULFATE 5 MG/5 ML SYR ONE (11:11)
[2018-08-18] MEDS ORDERED: D50W 25 GM/50 ML SYR IVP PRN (11:27)
[2018-08-18] MEDS ORDERED: PANTOPRAZOLE SODIUM 40 MG VIAL IVP ONE (11:27)
[2018-08-18] MEDS ORDERED: POLYETHYLENE GLYCOL 3350 17 GM PKT PO PRN (11:27)
[2018-08-18] MEDS ORDERED: ONDANSETRON DISINTEGRATING 4 MG TAB PO PRN (11:27)
[2018-08-18] MEDS ORDERED: BISACODYL 10 MG SUPP PR PRN (11:27)
[2018-08-18] MEDS ORDERED: SODIUM CL NASAL 45 ML BTL EACHNARE PRN (11:27)
[2018-08-18] MEDS ORDERED: CEPACOL LOZENGE PO PRN (11:27)
[2018-08-18] MEDS ORDERED: POTASSIUM Cl (KCl) 50 ML IV PRN (11:27)
[2018-08-18] MEDS ORDERED: MEPERIDINE 25 MG/0.5 ML AMP IVP PRN (11:27)
[2018-08-18] MEDS ORDERED: ACETAMINOPHEN 650 MG SUPP PR PRN (11:27)
[2018-08-18] MEDS ORDERED: MAGNESIUM HYDROXIDE 30 ML UDCUP PO PRN (11:27)
[2018-08-18] MEDS ORDERED: LACTULOSE 20 GM/30 ML UDCUP PO PRN (11:27)
[2018-08-18] MEDS ORDERED: NS 1,000 ML IV SCH (11:30)
[2018-08-18] MEDS ORDERED: INSULIN REGULAR HUMAN 100 UNIT in NS 100 ML IV SCH (11:30)
[2018-08-18] MEDS: fentaNYL 100 MCG/2 ML INJ IVP PRN ×2 (11:45→14:28)
--- NOTE | 2018-08-18 12:13 | GOP ---
[f rep st] OPERATIVE REPORT DATE OF OPERATION: 08/18/2018 SURGEON: Rajat Recinos DO FREIGHT REPRESENTATIVE: Imer Sinclair P.A.-c ANESTHESIOLOGIST: Tanesha PREOPERATIVE DIAGNOSIS: Unstable angina pectoris with severe 2 vessel disease. POSTOPERATIVE DIAGNOSIS: Unstable angina pectoris with severe 2 vessel disease. PROCEDURE PERFORMED: 1. Coronary artery bypass grafting x3 with left internal mammary artery to the distal left anterior descending, saphenous vein graft to the lateral circumflex and saphenous vein graft to the posterior descending artery. 2. Ligation of left atrial appendage. 3. Endoscopic vein harvest surgeon. FINDINGS: DESCRIPTION OF PROCEDURE: Patient was consented for surgery, brought to the operating room, intubate d, monitoring lines were placed. He was prepped and draped in sterile classical manner. Sternotomy was performed. Initially, 2 mammaries and a radial were initially planned for bypass. However, give n the distal nature of his PDA lesion, I did not think a radial would reach that vessel, and for that reason, vein was harvested. After harvesting the left internal mammary artery, it was on the smalle r side, and I felt that to get as far as I needed for a circumflex with the right internal mammary ar abdirahman, it would not be suitable and may be too small a caliber for a very large vessel. We, therefore , harvested 2 vein grafts endoscopically, harvested the left internal mammary artery, heparinized and cannulated. Bypass was begun, and cardioplegic arrest was obtained with antegrade cardioplegia, top ical hypothermia, and systemic cooling. All distals and proximals were performed with a cross-clamp on. The patient had a large circumflex measuring 2.5 mm to 2.8. The vein graft was excellent. It w as anastomosed to the ascending aorta. The PDA was a small diffusely diseased vessel at the proximal portion of the posterior descending artery. It was anastomosed to the ascending aorta as well. We then grafted the mammary to the very distal LAD because of stents extending 2/[address] out of the vessel. There was a 2 mm vessel grafted, had excellent flow. The mammary was a good quality vessel , but on the small side, and had brisk flow. It was tacked to the epicardium. We then doubly ligate d a narrow based left atrial appendage. Cross-clamp was removed with suction on the ascending aortic vent. Spontaneous cardiac activity was noted to resume. Patient was rewarmed and weaned from bypas s. Heparin was reversed with protamine. Cannula was removed and oversewn. Two ventricular pacing w ires, 2 pleural and 1 mediastinal drain were placed. The thymic fat and pericardium were closed. Ch est was closed in standard fashion. Patient was returned to ICU in stable condition. /[id number]/MODL
[2018-08-18] MEDS ORDERED: KETOROLAC 30 MG/1 ML SDV ONE (12:29)
[2018-08-18] MEDS: ALBUMIN 5% 250 ML IV PRN ×4 (12:57→13:53)
[2018-08-18] MEDS: ceFAZolin 2 GM/DEXTROSE 100 ML IV SCH ×2 (13:07→22:56)
[2018-08-18] MEDS ORDERED: ALBUMIN 5% 500 ML BOTTLE IV ONE ×2 (13:15→19:39)
[2018-08-18] MEDS: ONDANSETRON 4 MG/2 ML VIAL IVP PRN ×2 (14:28→21:07)
[2018-08-18] MEDS: METOCLOPRAMIDE 10 MG/2 ML VIAL IVP PRN (15:17)
[2018-08-18] MEDS ORDERED: KETOROLAC 30 MG/1 ML SDV IVP ONE (18:00)
[2018-08-18] MEDS ORDERED: HYDROmorphONE/DILAUDID 6 MG/30 ML PCA IV PRN ×2 (19:50→20:09)
[2018-08-18] MEDS ORDERED: ALBUMIN 5% 500 ML IV ONE (20:00)
[2018-08-18] MEDS: MUPIROCIN 2% 22 GM OINT NS SCH (20:20)
[2018-08-19] MEDS: METOCLOPRAMIDE 10 MG/2 ML VIAL IVP PRN (03:34)
[2018-08-19 05:29] LABS: PLATELET COUNT 157 10^3/uL (150-400)
[2018-08-19] MEDS: ceFAZolin 2 GM/DEXTROSE 100 ML IV SCH ×3 (05:36→23:22)
[2018-08-19] MEDS: HYDROCODONE/APAP 5/325 TAB PO PRN ×4 (05:48→17:05)
[2018-08-19] MEDS ORDERED: HEPARIN 5,000 UNIT/0.5 ML INJ SC SCH (06:00)
--- NOTE | 2018-08-19 06:45 | CPEKG ---
Test Reason : OPEN Blood Pressure : / mmHG Vent. Rate : 068 BPM Atrial Rate : 068 BPM P-R Int : 230 ms QRS Dur : 097 ms QT Int : 428 ms P-R-T Axes : 048 -30 027 degrees QTc Int : 456 ms Sinus rhythm Prolonged MO interval Left axis deviation Confirmed by Farrukh Cope ([id number]) on 08/19/2018 6:44:48 AM Referred By: Rajat Recinos Confirmed By:Farrukh Cope
--- NOTE | 2018-08-19 08:14 | SOAPPROG ---
SOAP Progress Note Assessment/Plan: Assessment: POD#1 CABG x 3 (RICHMOND-LAD, SV-LCX, SV-PDA), EVH RLE, prophylactic suture ligation TAWNYA Sx severe CAD with ISR LAD/RCA and preserved LV systolic fx - Fully revascularized with CABG. Extubated in OR. No sustained pressor support. No dysrhythmias. Adequately autodiuresing significant volume overload. Secondary prevention with DAPT, BB and statin when appropriate. Acute expected blood loss anemia - Stable. No evidence active bleeding. VTE prophylaxis with SCDs/DAPT. Plan: Routine POD#1 orders re lines, drains, orals, mobility. Start metoprolol tartrate 12.5 mg BID. Optimize analgesia. Tx to PCU. 08/19/18 08:06 Subjective: Miserable night. Didn't expect as much pain. Nauseous on morphine. IV Dilaudid and Corona this am seemingly well tolerated. Objective: Vital Signs Temp Pulse Resp BP Pulse Ox 36.9 C 92 18 138/66 H 94 08/19/18 04:00 08/19/18 07:00 08/19/18 07:00 08/19/18 07:00 08/19/18 07:00 Laboratory Results 08/19/18 04:35 08/19/18 04:35 08/18/18 08/19/18 08/20/18 05:59 05:59 05:59 Intake Total 500 1345.1 Output Total 2825 60 Balance 500 -1479.9 -60 PT 12.0 SEC (12.0-15.0) 08/15/18 10:55 INR 0.92 (0.83-1.16) 08/15/18 10:55 No gtts overnoc. HR and BP sl elev, likely reactive to pain. Stable 2 lpm suppl O2 req. Excellent diuresis. +15 kg? by wt. Sl elev but thin CTOP. CXR -> hypovent, no PTX, no sig pulm vasc congestion, mild bibasilar atelectasis. Labs as expected. Physical Exam - Physical Exam General Appearance: alert, no apparent distress Respiratory: decreased breath sounds, crackles (throughout), other (Blakes x 3 y -d to pleurovac, poor tidal, no overt air leak) Cardiac/Chest: regular rate, rhythm, other (Sternotomy CDI. Vwires intact.) Abdomen: normal bowel sounds, non-tender, soft Skin: warm/dry Extremities: swelling (1+ gen), other (RLE leg wrap intact) ICD10 Worksheet Patient Problems: Problems Problem Status Onset Acute blood loss anemia Acute CAD (coronary artery disease) Acute Chest pain Acute S/P CABG x 3 Acute S/P left atrial appendage ligation Acute
[2018-08-19] MEDS ORDERED: HYDROmorphONE/DILAUDID 1 MG/ML INJ IVP PRN (09:06)
[2018-08-19] MEDS: ACETAMINOPHEN 325 MG TAB PO PRN ×2 (09:09→13:07)
[2018-08-19] MEDS: MUPIROCIN 2% 22 GM OINT NS SCH (09:10)
[2018-08-19] MEDS ORDERED: KETOROLAC 30 MG/1 ML SDV ONE (09:38)
[2018-08-19] MEDS: ALPRAZolam 0.5 MG TAB PO PRN ×3 (09:43→23:23)
[2018-08-19] MEDS: METOPROLOL TARTRATE 25 MG TAB PO SCH ×3 (09:44→23:24)
[2018-08-19] MEDS: KETOROLAC 30 MG/1 ML SDV IVP SCH ×3 (09:47→23:47)
[2018-08-19] MEDS ORDERED: IPRATROPIUM/ALBUTEROL 3 ML DEYVIAL IH PRN (10:19)
[2018-08-19] MEDS ORDERED: ASPIRIN 81 MG CHEWABLE TAB TUBE PRN (11:27)
[2018-08-19] MEDS: PANTOPRAZOLE SODIUM 40 MG TAB PO SCH (11:49)
[2018-08-19] MEDS: ASPIRIN 81 MG CHEWABLE TAB PO SCH (11:49)
--- NOTE | 2018-08-19 13:01 | ASMTCMCOM ---
CM Note CM Note Notes: CABG x 3, POD #1. Spoke with CT surgery PA Elizabet, PT, and OT - all recommending an independent discharge home. No CM needs at this time; we are available if anything arises. Current CM Discharge plan: home independent Date Signed: 08/19/2018 01:00 PM Electronically Signed By:Odilia Carter RN
[2018-08-19] MEDS: PRASUGREL HCL 5 MG TAB PO SCH (23:25)
[2018-08-20] MEDS: KETOROLAC 30 MG/1 ML SDV IVP SCH (05:08)
[2018-08-20] MEDS ORDERED: HYDROmorphONE/DILAUDID 1 MG/ML INJ IVP ONE (05:45)
[2018-08-20] MEDS: HYDROCODONE/APAP 5/325 TAB PO PRN ×3 (07:30→22:14)
[2018-08-20] MEDS: ASPIRIN 81 MG CHEWABLE TAB PO SCH (07:38)
[2018-08-20] MEDS: PANTOPRAZOLE SODIUM 40 MG TAB PO SCH (07:39)
[2018-08-20] MEDS: METOPROLOL TARTRATE 25 MG TAB PO SCH (07:39)
--- NOTE | 2018-08-20 08:03 | SOAPPROG ---
SOAP Progress Note Assessment/Plan: Assessment: POD#2 CABG x 3 (RICHMOND-LAD, SV-LCX, SV-PDA), EVH RLE, prophylactic suture ligation TAWNYA Sx severe CAD with ISR LAD/RCA and preserved LV systolic fx - Fully revascularized with CABG. Extubated in OR. No sustained pressor support. No signifcant dysrhythmias except for occ PVC. Secondary prevention with DAPT, BB. Plan to cut wires d/t DAPT. Patient states he has profound myalgias with Crestor. Will let cards trial new statin as outpatient. Acute expected blood loss anemia - Stable. No evidence active bleeding. VTE prophylaxis with SCDs/DAPT. Plan: 1L IVF for marginal UOP/rising BUN/intravascularly dry Inc BB Will d/w Dr. YaHair CT removal PT rec home w o/p rehab TCPW cut tomorrow Subjective: Improved from yesterday. Objective: Vital Signs Temp Pulse Resp BP Pulse Ox 37.1 C 115 H 18 112/76 94 08/20/18 07:43 08/20/18 07:43 08/20/18 07:43 08/20/18 07:43 08/20/18 07:43 Laboratory Results 08/20/18 05:50 08/20/18 05:50 08/19/18 08/20/18 08/21/18 05:59 05:59 05:59 Intake Total 1345.1 1075 Output Total 2825 1680 110 Balance -1479.9 -605 -110 PT 12.0 SEC (12.0-15.0) 08/15/18 10:55 INR 0.92 (0.83-1.16) 08/15/18 10:55 - Physical Exam General Appearance: alert, no apparent distress Respiratory: decreased breath sounds, crackles (throughout), other (Blakes x 3 bulbs) Cardiac/Chest: ST, other (Sternotomy CDI. Vwires intact.) Abdomen: normal bowel sounds, non-tender, soft Skin: warm/dry Extremities: swelling (1+ gen), other (RLE cdi) ICD10 Worksheet Patient Problems: Problems Problem Status Onset Acute blood loss anemia Acute CAD (coronary artery disease) Acute Chest pain Acute S/P CABG x 3 Acute S/P left atrial appendage ligation Acute
[2018-08-20] MEDS ORDERED: NS 1,000 ML IV SCH (08:30)
[2018-08-20] MEDS ORDERED: METOPROLOL TARTRATE 25 MG TAB PO SCH (10:11)
[2018-08-20] MEDS: traMADol 50 MG TAB PO PRN (12:22)
[2018-08-20] MEDS: MUPIROCIN 2% 22 GM OINT NS SCH ×2 (12:22)
[2018-08-20] MEDS: guaiFENesin 600 MG TAB.ER PO SCH ×2 (12:22→22:13)
[2018-08-20] MEDS ORDERED: METOPROLOL TARTRATE 25 MG TAB PO ONE (15:15)
[2018-08-20] MEDS ORDERED: METOPROLOL TARTRATE 5 MG/5 ML INJ IV ONE ×2 (16:15→17:00)
[2018-08-20] MEDS: SENNOSIDES/DOCUSATE SODIUM TAB PO SCH (22:13)
[2018-08-21] MEDS: HYDROCODONE/APAP 5/325 TAB PO PRN ×3 (06:46→20:28)
--- NOTE | 2018-08-21 08:00 | SOAPPROG ---
SOAP Progress Note Assessment/Plan: Assessment: POD#3 CABG x 3 (RICHMOND-LAD, SV-LCX, SV-PDA), EVH RLE, prophylactic suture ligation TAWNYA Sx severe CAD with ISR LAD/RCA and preserved LV systolic fx - Fully revascularized with CABG. Extubated in OR. No sustained pressor support. No significant dysrhythmias except for occ PVC. Secondary prevention with DAPT, BB. Plan to cut wires d/t DAPT. Patient states he has profound myalgias with Crestor. Will let cards trial new statin as outpatient. Acute expected blood loss anemia - Stable. No evidence active bleeding. VTE prophylaxis with SCDs/DAPT. H/H drop 8.8/26.9 dilutional / IVF yesterday - Monitor. Sinus tachycardia - likely multifactorial including being intravascularly dry, post-op pain, anemia, and recent surgery. Responded to IVF (dec BUN, inc UOP). Titrate BB to HR 60-100 as BP allows. Plan: Increase BB from 25 to 37.5 mg PO BID Will keep TCPW with ongoing titration of BB, likely cut tomorrow Restart Effient tonight H/H tomorrow PT rec home w o/p rehab likely Wednesday. Patient requesting HHC but advised HHC prevents initiation of o/p cardiac rehab. He is interested in a private care to assist in his transition. Subjective: Slept poor last night. Objective: Vital Signs Temp Pulse Resp BP Pulse Ox 37.2 C 110 H 20 128/81 H 97 08/21/18 04:00 08/21/18 04:00 08/21/18 04:00 08/21/18 04:00 08/21/18 04:00 Laboratory Results 08/21/18 06:40 08/21/18 06:40 08/20/18 08/21/18 08/22/18 05:59 05:59 05:59 Intake Total 1075 2450 Output Total 1680 1530 Balance -605 920 PT 12.0 SEC (12.0-15.0) 08/15/18 10:55 INR 0.92 (0.83-1.16) 08/15/18 10:55 - Physical Exam General Appearance: alert, no apparent distress Respiratory: decreased breath sounds, crackles (throughout), Cardiac/Chest: ST, other (Sternotomy CDI. Vwires intact.) Abdomen: normal bowel sounds, non-tender, soft Skin: warm/dry Extremities: swelling (trace), other (RLE cdi) CXR - improved left base, dec atelectasis ICD10 Worksheet Patient Problems: Problems Problem Status Onset Acute blood loss anemia Acute CAD (coronary artery disease) Acute Chest pain Acute S/P CABG x 3 Acute S/P left atrial appendage ligation Acute
[2018-08-21] MEDS: ASPIRIN 81 MG CHEWABLE TAB PO SCH (08:24)
[2018-08-21] MEDS: guaiFENesin 600 MG TAB.ER PO SCH ×2 (08:24→20:21)
[2018-08-21] MEDS: METOPROLOL TARTRATE 25 MG TAB PO SCH ×2 (08:25→20:23)
[2018-08-21] MEDS: SENNOSIDES/DOCUSATE SODIUM TAB PO SCH ×2 (08:28→20:21)
[2018-08-21] MEDS: PANTOPRAZOLE SODIUM 40 MG TAB PO SCH (08:29)
--- NOTE | 2018-08-21 16:03 | ASMTCMCOM ---
CM Note CM Note Notes: Chart reviewed for d/c. PT recommends home with outpatient Rehab, likely Wednesday. PT interested in hiring private care to assist in his transition home. CM available for needs. PLAN: Likely, Home with outpatient Cardiac Rehab and possibly private care. Date Signed: 08/21/2018 04:02 PM Electronically Signed By:Beth Mcginnis
[2018-08-21] MEDS: traMADol 50 MG TAB PO PRN (17:00)
[2018-08-21] MEDS ORDERED: METOPROLOL TARTRATE 5 MG/5 ML INJ IVP ONE ×2 (17:14→19:30)
[2018-08-21] MEDS ORDERED: NS 1,000 ML IV SCH (17:30)
[2018-08-21] MEDS: ROSUVASTATIN CALCIUM 10 MG TAB PO SCH (20:21)
[2018-08-21] MEDS: PRASUGREL HCL 5 MG TAB PO SCH (21:05)
[2018-08-22] MEDS: HYDROCODONE/APAP 5/325 TAB PO PRN ×2 (02:00→21:43)
[2018-08-22] MEDS: ALPRAZolam 0.5 MG TAB PO PRN (02:10)
--- NOTE | 2018-08-22 08:12 | SOAPPROG ---
SOAP Progress Note Assessment/Plan: Assessment: POD#4 CABG x 3 (RICHMOND-LAD, SV-LCX, SV-PDA), EVH RLE, prophylactic suture ligation TAWNYA Sx severe CAD with ISR LAD/RCA and preserved LV systolic fx - Fully revascularized with CABG. Extubated in OR. No sustained pressor support. No dysrhythmias. Slow to mobilize significant volume overload. Secondary prevention with DAPT and BB. Statin choice and dose per cards d/t prior intolerance. Acute expected blood loss anemia - Stable. No evidence active bleeding. VTE prophylaxis with SCDs/DAPT. Postop sinus tachycardia - Exacerbated by pain, anxiety and fluid overload. Monitor. Plan: Relax BB. Keep TCPW one more day. Intensify diuresis. Dispo - Home tomorrow afternoon if medically stable. 08/22/18 08:11 Subjective: Feels lousy. Poor sleep d/t multiple disturbances. Believes he is wheezing more and nose feels congested. Troubled by his weight. Doesn't feel bloated but midsection and his hands/fingers do feel tight and wedding ring (tho loose) snugger than usual. Overwhelmed by recovery process and anxious about independent decision making. Objective: Vital Signs Temp Pulse Resp BP Pulse Ox 37.1 C 104 H 17 122/91 H 97 08/21/18 23:18 08/22/18 04:00 08/21/18 23:18 08/21/18 23:18 08/22/18 04:00 Laboratory Results 08/22/18 05:30 08/21/18 06:40 08/21/18 08/22/18 08/23/18 05:59 05:59 05:59 Intake Total 2450 1536 Output Total 1530 1650 400 Balance 920 -114 -400 PT 12.0 SEC (12.0-15.0) 08/15/18 10:55 INR 0.92 (0.83-1.16) 08/15/18 10:55 Persistent low grade sinus tach 100s. Stable SBPs and suppl O2 req. Positive fluid balance. +15 kg overall. Physical Exam - Physical Exam General Appearance: alert, mild distress (emotionally) EENT: other (nasal insp whistling) Respiratory: lungs clear (no wheezing) Cardiac/Chest: regular rate, rhythm, tachycardia, other (Sternotomy and RLE venotomy CDI. Vwires intact.) Abdomen: non-tender, soft Skin: warm/dry Extremities: other (no visible edema) ICD10 Worksheet Patient Problems: Problems Problem Status Onset Acute blood loss anemia Acute CAD (coronary artery disease) Acute Chest pain Acute S/P CABG x 3 Acute S/P left atrial appendage ligation Acute
[2018-08-22] MEDS ORDERED: FUROSEMIDE 40 MG TAB PO SCH ×2 (09:00→15:00)
[2018-08-22] MEDS ORDERED: FUROSEMIDE 40 MG/4 ML VIAL IVP ONE (09:00)
[2018-08-22] MEDS ORDERED: POTASSIUM CL 20 MEQ TAB PO SCH ×2 (09:00→15:00)
[2018-08-22] MEDS ORDERED: POTASSIUM CL 10 MEQ TAB PO SCH (09:00)
[2018-08-22] MEDS: traMADol 50 MG TAB PO PRN ×2 (09:21→16:02)
[2018-08-22] MEDS: PANTOPRAZOLE SODIUM 40 MG TAB PO SCH (09:22)
[2018-08-22] MEDS: ASPIRIN 81 MG CHEWABLE TAB PO SCH (09:22)
[2018-08-22] MEDS: guaiFENesin 600 MG TAB.ER PO SCH ×2 (09:22→21:38)
[2018-08-22] MEDS: SENNOSIDES/DOCUSATE SODIUM TAB PO PRN (10:25)
[2018-08-22] MEDS: FLUTICASONE NASAL 120 SPRAYS/16 GM MDI EACHNARE SCH (10:25)
[2018-08-22] MEDS: SENNOSIDES/DOCUSATE SODIUM TAB PO SCH (11:07)
[2018-08-22] MEDS: ALPRAZolam 0.25 MG TAB PO SCH ×3 (14:27→21:38)
[2018-08-22] MEDS ORDERED: ALBUMIN 5% 500 ML IV ONE (17:32)
[2018-08-22] MEDS: ACETAMINOPHEN 325 MG TAB PO PRN (17:37)
[2018-08-22] MEDS: ROSUVASTATIN CALCIUM 10 MG TAB PO SCH (21:38)
[2018-08-22] MEDS: PRASUGREL HCL 5 MG TAB PO SCH (21:38)
[2018-08-22] MEDS ORDERED: METOPROLOL TARTRATE 25 MG TAB PO ONE (22:00)
--- NOTE | 2018-08-23 07:49 | SOAPPROG ---
SOAP Progress Note Assessment/Plan: Assessment: POD#5 CABG x 3 (RICHMOND-LAD, SV-LCX, SV-PDA), EVH RLE, prophylactic suture ligation TAWNYA Sx severe CAD with ISR LAD/RCA and preserved LV systolic fx - Fully revascularized with CABG. Extubated in OR. No sustained pressor support. No dysrhythmias. Improving fluid balance. Secondary prevention with DAPT and BB. Statin choice and dose per cards d/t prior intolerance. Acute expected blood loss anemia - Stable s/p 1u PRBC. VTE prophylaxis with SCDs /DAPT. Postop sinus tachycardia - Exacerbated by pain, anxiety and fluid overload. Responsive to supportive therapies. Monitor. Plan: Cont metoprolol 12.5 mg BID. TCPW clipped. Diuretic holiday. Dispo - Home tomorrow afternoon if medically stable. 08/23/18 07:48 Subjective: Slept well. Feels much more energetic. Less anxious. No longer "tight". Objective: Vital Signs Temp Pulse Resp BP Pulse Ox 37.8 C 118 H 18 127/91 H 95 08/23/18 04:40 08/23/18 04:40 08/23/18 04:40 08/23/18 04:40 08/23/18 04:40 Laboratory Results 08/23/18 05:00 08/23/18 05:00 08/22/18 08/23/18 08/24/18 05:59 05:59 05:59 Intake Total 1536 1160 Output Total 1650 5100 Balance -114 -3940 PT 12.0 SEC (12.0-15.0) 08/15/18 10:55 INR 0.92 (0.83-1.16) 08/15/18 10:[address] w inc HRs and decr BPs post massive diuresis yest. Repleted w albumin and 1u PRBC. Sufficient SBP for low dose BB. Home wt 206#. Now within 3 kg. CXR-> no pulm vasc congestion, mild left basilar atelectasis without overt residual effusion. Borderline suppl O2 req. Labs ok. - Pending Discharge Pending Discharge Within 24 Hours: Yes Pending Discharge Date: 08/24/18 Pending Discharge Time: 11:00 Physical Exam - Physical Exam General Appearance: alert, no apparent distress Respiratory: lungs clear (grossly), other (CT sites clean and moist) Cardiac/Chest: regular rate, rhythm, other (Sternotomy and RLE venotomy CDI. V wires clipped at skin) Abdomen: non-tender, soft Skin: warm/dry Extremities: other (no visible edema) ICD10 Worksheet Patient Problems: Problems Problem Status Onset Acute blood loss anemia Acute CAD (coronary artery disease) Acute Chest pain Acute S/P CABG x 3 Acute S/P left atrial appendage ligation Acute
[2018-08-23] MEDS: ASPIRIN 81 MG CHEWABLE TAB PO SCH (08:30)
[2018-08-23] MEDS: guaiFENesin 600 MG TAB.ER PO SCH (08:30)
[2018-08-23] MEDS: ALPRAZolam 0.25 MG TAB PO SCH ×3 (08:30→21:31)
[2018-08-23] MEDS: FLUTICASONE NASAL 120 SPRAYS/16 GM MDI EACHNARE SCH (08:32)
[2018-08-23] MEDS ORDERED: METOPROLOL TARTRATE 25 MG TAB PO SCH ×2 (09:00→21:00)
[2018-08-23] MEDS ORDERED: ALBUTEROL 60 PUFFS/8 GM MDI IH PRN (09:20)
[2018-08-23] MEDS: ACETAMINOPHEN 325 MG TAB PO PRN (12:03)
[2018-08-23] MEDS: traMADol 50 MG TAB PO PRN (12:03)
--- NOTE | 2018-08-23 12:38 | ECHO ---
[email or web address] [address] Main: [phone] Echocardiography Examination Transthoracic Name: TANNER WORKMAN MR#: [id number] Study Date: 08/23/2018 Study Time: 11:25 AM Date of : 1955 Age: 63 year(s) Height: 180.3 cm (71 in.) Weight: 96.16 kg (212 lb.) BSA: 2.16 m2 Gender: Male Examination: Limited Echo Contrast: Image Quality: Adequate Rhythm: Heart Rate: BP: 116 mmHg/74 mmHg Indication: Eval for pericardial effusion/persistent sinus tachycardia Procedure Staff Referring Physician: Conical Mixer: Trinity Perez RDCS Reading Physician: Farrukh Cope MD Requesting Provider: Ordering Physician: Elizabet Jenkins Indication: Eval for pericardial effusion/persistent sinus tachycardia Measurements Chambers Label Value Normal Value EF lower range (%) 55 % EF upper range (%) 60 % Conclusions Overall Conclusions: Ejection fraction 55-60%. Trivial anterior pericardial effusion Findings Left Ventricle: EF range is estimated at 55 % - 60 %. IAS: Atrial septal bowing from right to left. Aortic Valve: Aortic leaflets exhibit mild calcification. The aortic valve is trileaflet. Pericardium: Trivial anterior pericardial effusion. Patient: TANNER WORKMAN Study Date: 08/23/2018 Page 1 of 2 11:25 AM Exam Details Procedure Ordered: Limited Echo Procedure Status: Routine study Image Quality: Adequate Facility Location: Cardiac Echo 1 (No Signature Object) Patient: TANNER WORKMAN Study Date: 08/23/2018 Page 2 of 2 11:25 AM [id number]
[2018-08-23] MEDS: PRASUGREL HCL 5 MG TAB PO SCH (20:11)
[2018-08-23] MEDS: ROSUVASTATIN CALCIUM 10 MG TAB PO SCH (20:22)
[2018-08-23] MEDS ORDERED: PANTOPRAZOLE SODIUM 40 MG TAB PO SCH (21:00)
[2018-08-23] MEDS: HYDROCODONE/APAP 5/325 TAB PO PRN (21:32)
[2018-08-23] MEDS: SENNOSIDES/DOCUSATE SODIUM TAB PO PRN (21:32)
--- NOTE | 2018-08-24 07:38 | SOAPPROG ---
SOAP Progress Note Assessment/Plan: Assessment: POD#5 CABG x 3 (RICHMOND-LAD, SV-LCX, SV-PDA), EVH RLE, prophylactic suture ligation TAWNYA Sx severe CAD with ISR LAD/RCA and preserved LV systolic fx - Fully revascularized with CABG. Extubated in OR. No sustained pressor support. No dysrhythmias. Slow to mobilize significant volume overload. Secondary prevention with DAPT and BB. Statin choice and dose per cards d/t prior intolerance. TTE yesterday w trivial pericardial effusion. EF 55-60%. Acute expected blood loss anemia - Stable. No evidence active bleeding. VTE prophylaxis with SCDs/DAPT. Postop sinus tachycardia - Exacerbated by pain, anxiety and fluid overload. TTE negative. Plan: Increase BB to 50 BID Requesting cath films Dispo - home today w private care per patient request if HR responds to Lopressor 50 mg PO BID. If he does not, plan to give IV dose and increase evening dose/discharge tomorrow. Subjective: Frustrated about HR and feels it. Objective: Vital Signs Temp Pulse Resp BP Pulse Ox 37.6 C 117 H 14 121/92 H 94 08/24/18 04:00 08/24/18 04:00 08/24/18 04:00 08/24/18 04:00 08/24/18 04:00 Laboratory Results 08/23/18 05:00 08/23/18 05:00 08/23/18 08/24/18 08/25/18 05:59 05:59 05:59 Intake Total 1160 1490 Output Total 5100 1350 Balance -3940 140 PT 12.0 SEC (12.0-15.0) 08/15/18 10:55 INR 0.92 (0.83-1.16) 08/15/18 10:55 - Physical Exam General Appearance: alert, no apparent distress Respiratory: lungs clear (grossly), other (CT sites clean and moist) Cardiac/Chest: regular rate, rhythm, other (Sternotomy and RLE venotomy CDI. V wires clipped at skin) Abdomen: non-tender, soft Skin: warm/dry Extremities: other (no visible edema) ICD10 Worksheet Patient Problems: Problems Problem Status Onset Acute blood loss anemia Acute CAD (coronary artery disease) Acute Chest pain Acute S/P CABG x 3 Acute S/P left atrial appendage ligation Acute
[2018-08-24] MEDS: ASPIRIN 81 MG CHEWABLE TAB PO SCH (08:03)
[2018-08-24] MEDS: ALPRAZolam 0.25 MG TAB PO SCH ×2 (08:03→15:51)
[2018-08-24] MEDS: FLUTICASONE NASAL 120 SPRAYS/16 GM MDI EACHNARE SCH (08:04)
[2018-08-24] MEDS ORDERED: METOPROLOL TARTRATE 50 MG TAB PO SCH (09:00)
--- NOTE | 2018-08-24 09:29 | ASMTCMCOM ---
CM Note CM Note Notes: CM discussed case w/ NAYELY Willams. CM provided pt and w/ senior blue book w/ list of private duty caregivers. will call to see who has availabilities. Pt does not have any needs at this time. CM available for changes. Plan: Independent w/ outpatient cardiac rehab follow up Date Signed: 08/24/2018 09:29 AM Electronically Signed By:ANNALISA Faith
[2018-08-24 11:07] VITALS: BP 103/79
--- NOTE | 2018-08-24 12:16 | PDDCSUM ---
Discharge Summary Discharge Summary: DATE OF ADMISSION: 08/15/18 DATE OF DISCHARGE: 08/24/18 DISPOSITION: Home with private home health services + home oxygen ACTIVITY: Instructed on sternal precautions, activity restrictions, and problems to call [facility]. ADMISSION DIAGNOSES: Unstable angina Coronary artery disease s/p multiple PCI on Prasugrel Dyslipidemia Hypertension DISCHARGE DIAGNOSES: As above, plus S/p CABGx3 with ligation of left atrial appendage Persistent sinus tachycardia Acute expected blood loss anemia PROCEDURES PERFORMED: 08/18/18 ([facility]) CABGx3 (RICHMOND-LAD, SVG-lateral circumflex, SVG-PDA), ligation of TAWNYA, EVH RLE 08/23/18 TTE negative for pericardial effusion HISTORY OF PRESENT ILLNESS: 63M with known CAD s/p stenting with c/o recent CP on exertion while walking uphill s/p LHC by Dr. Melara and found to have severe in-stent restenosis of LAD and proximal RCA as well as a high grade distal RCA lesion. CTSx consulted for surgical revascularization. The pt has a h/o HTN and DLD. He denies h/o CVA , renal issues or DM. He was taking Effient as an OP. HOSPITAL COURSE BY PROBLEM LIST: Sx severe CAD with ISR LAD/RCA and preserved LV systolic fx - Fully revascularized with CABG. Extubated in OR. No sustained pressor support. No dysrhythmias. Secondary prevention with DAPT and BB. Statin choice and dose per cards d/t prior intolerance. TTE w trivial pericardial effusion. EF 55-60%. Acute expected blood loss anemia - Stable. S/p 1u pRBC. Postop sinus tachycardia - Exacerbated by pain, fluid overload, and intravascularly dry. Extremely sensitive to lasix (5L UOP p Lasix 40mg IVx1). Multiple fluid boluses due to poor PO intake. TTE negative for pericardial tamponade. His beta-sonali was titrated to 50 mg PO BID with acceptable parameters (HR 90-110). Expect HR to gradually decrease. PERTINENT DISCHARGE CLINICAL INFORMATION: Sternotomy CDI R EVH sites CDI HR 100 BP 103/79 SpO2 85% RA preop wt 93.5 kg, discharge wt 92 kg WBC 7.4 Hgb 10.3 Hct 31 Plt 208 Na 138 K 4.3 Cr 0.9 CONSULTANTS: Cardiology, [facility], [facility] MEDICATIONS ON ADMISSION: Aspirin 81 mg PO HS Atenolol 25 mg PO HS Folic Acid 1 MG PO HS Naproxen Sodium 220 mg PO BID PRN Omeprazole 40 mg PO HS Prasugrel HCl 5 mg PO HS Ramipril 2.5 mg PO HS Rosuvastatin Calcium 10 mg PO HS (was not taking) ALLERGIES/SENSITIVITIES: NKDA DISCHARGE MEDICATIONS: CONTINUE these medications: Prasugrel HCl 5 mg PO HS Aspirin 81 mg PO HS Folic Acid 1 MG PO HS Omeprazole 40 mg PO HS STOP these medications: Atenolol 25 mg PO HS Naproxen Sodium 220 mg PO BID PRN Ramipril 2.5 mg PO HS Rosuvastatin Calcium 10 mg PO HS NEW medications: Tylenol PRN [place] 1-2 tabs PO q6 hours PRN #30 Lopressor 50 mg PO BID FOLLOW UP APPOINTMENTS: 1. CV surgery: with Dr. Recinos at [facility] on 08/30/18. 2. Cardiology Dr[address] Mera, as directed FOLLOW UP TESTING: CXR prior to surgical appointment.
--- NOTE | 2018-08-24 12:17 | PDHOMEO2F ---
Home Oxygen Face to Face Home Orders: I certify that a physician or a nurse practitioner or physician's recovery assistant has had a [id number] encounter with this patient on the date of this order due to the diagnosis listed, which relates to the primary reason the patient requires home oxygen. Alternative treatments have been tried, or considered, and deemed ineffective. It is anticipated that supplemental oxygen will result in improvement with treatment. Home oxygen qualifying diagnosis: coronary artery disease s/p CABG SpO2 on room air (%): 87% Frequency of home oxygen needed: continuous Home oxygen liters per minute: 1-2 Home oxygen delivery device: nasal cannula Concentrator: Yes E-tanks for mobility and back up: Yes If ordering portable O2, is the patient mobile in the home?: Yes I certify that, based on these findings, the home oxygen is medically necessary for this patient for the following length of time. Length of time home oxygen needed: 1 month
[2018-08-24] MEDS ORDERED: PNEUMOCOCCAL 0.5ML VACCINE VIAL (PNEUMOVAX 23) IM ONE (14:20)
== END 2018-08-24 16:40 | disposition home or self-care (01) | DRG 234 ==
LOC: F2W 15:45 → OBSVTOIN 08-16 16:30 → F2N 08-18 07:34 → F2W 08-19 18:00
PROVIDERS: ADMIT Thoracic Surgery (Cardiothoracic Vascular Surgery); ATTEND Thoracic Surgery (Cardiothoracic Vascular Surgery)
PROC: B2111ZZ Fluoroscopy of Multiple Coronary Arteries using Low Osmolar Contrast (ICD-10-PCS; 2018-08-15)
PROC: B2151ZZ Fluoroscopy of Left Heart using Low Osmolar Contrast (ICD-10-PCS; 2018-08-15)
PROC: 4A023N7 Measurement of Cardiac Sampling and Pressure, Left Heart, Percutaneous Approach (ICD-10-PCS; 2018-08-15)
PROC: 06BQ4ZZ Excision of Left Saphenous Vein, Percutaneous Endoscopic Approach (ICD-10-PCS; principal; 2018-08-18 07:15)
PROC: 02L70ZK Occlusion of Left Atrial Appendage, Open Approach (ICD-10-PCS; principal; 2018-08-18 07:15)
PROC: 02100Z9 Bypass Coronary Artery, One Artery from Left Internal Mammary, Open Approach (ICD-10-PCS; principal; 2018-08-18 07:15)
PROC: 5A1221Z Performance of Cardiac Output, Continuous (ICD-10-PCS; principal; 2018-08-18 07:15)
PROC: 021109W Bypass Coronary Artery, Two Arteries from Aorta with Autologous Venous Tissue, Open Approach (ICD-10-PCS; principal; 2018-08-18 07:15)
DX: I25.110 Atherosclerotic heart disease of native coronary artery with unstable angina pectoris (principal); D62 Acute posthemorrhagic anemia; T82.855A Stenosis of coronary artery stent, initial encounter; E78.5 Hyperlipidemia, unspecified; I10 Essential (primary) hypertension; R00.0 Tachycardia, unspecified; Z23 Encounter for immunization
CPT/HCPCS: 82435-PO; 82565-PO; 82947-PO; 84132-PO; 84295-PO; 84484-ER; 84520-PO; 85014-ER; 97116-GP; 97161-GP; 97165-GO; 97530-GO; 97530-GP; 97535-GO; C1760; C1769; G0009; G0378; J0153; J0282; J0690; J1170; J1265; J1644; J1815; J1885; J1940; J2001; J2150; J2250; J2260; J2270; J2370; J2405; J2440; J2704; J2710; J2720; J2765; J2930; J3010; J3475; P9016; P9041; Q9967

== ENCOUNTER → 2018-08-30 | Outpatient (CLI) | payer OTHER | LOC: FIMAGING 09:42 → EDSTATUS 09:43 | PROVIDERS: ATTEND Thoracic Surgery (Cardiothoracic Vascular Surgery) | DX: Z09 Encounter for follow-up examination after completed treatment for conditions other than malignant neoplasm (principal); J90 Pleural effusion, not elsewhere classified; Z95.1 Presence of aortocoronary bypass graft ==